=== PATIENT | female | born 1960 | race Two or more races ===

== ENCOUNTER 2024-04-15 13:12 | Emergency (ER) | payer OTHER ==
[~2024-04-15] VITALS: Ht 165.1 cm; Wt 98.0 kg
[2024-04-15] MEDS ORDERED: KETOROLAC TROMETHAMINE 15 MG/ML VIAL ONE (13:58)
[2024-04-15] MEDS ORDERED: LIDOCAINE 5% (PATCH) 1 EA PATCH TP ONE (13:58)
[2024-04-15] MEDS ORDERED: predniSONE 20 MG TABLET ONE (13:58)
[2024-04-15] MEDS: KETOROLAC TROMETHAMINE 15 MG/ML VIAL IM ONE (14:14)
[2024-04-15] MEDS: predniSONE 50 MG TABLET PO ONE (14:14)
[2024-04-15] MEDS: LIDOCAINE 5% (PATCH) 1 EA PATCH TP ONE (14:14)
[2024-04-15 14:45] LABS: APPEARANCE,URINE CLEAR (CLEAR); BILIRUBIN,URINE NEGATIVE (NEGATIVE); BLOOD, URINE 1+ Ery/uL (NEGATIVE); COLOR,URINE YELLOW (YELLOW); KETONES,URINE NEGATIVE (NEGATIVE); LEUKOCYTE ESTERASE ,URINE NEGATIVE (NEGATIVE); NITRITE, URINE NEGATIVE (NEGATIVE); PROTEIN,URINE NEGATIVE (NEGATIVE); UGLUCOSE NEGATIVE (NEGATIVE); UROBILINOGEN,URINE 0.2 EU/dL (0.2)
[2024-04-15 14:55] LABS: ADD URINE CULTURE NO; BACTERIA,URINE Rare /HPF (None Seen); WBC,URINE 0-2 /HPF (0-3)
[2024-04-15] MEDS ORDERED: MELO-107 PO (15:19)
[2024-04-15] MEDS ORDERED: LIDO30AD10 TP (15:19)
[2024-04-15] MEDS ORDERED: METH-649 PO (15:19)
[2024-04-15 15:29] VITALS: BP 133/90; TEMP 98.6; O2SAT 98
== END 2024-04-15 15:30 | disposition home or self-care (01) ==
LOC: ER 13:15
DX: M54.42 Lumbago with sciatica, left side (principal); M54.41 Lumbago with sciatica, right side; Z79.1 Long term (current) use of non-steroidal anti-inflammatories (NSAID); Z79.899 Other long term (current) drug therapy
CPT/HCPCS: 99284; 96372; 72110; 81001; J1885; J7512